=== PATIENT | male | born 1955 | race Caucasian/White ===

== ENCOUNTER 2019-02-20 08:36 | Inpatient (IN) ==
[2019-02-20] MEDS ORDERED: Isovue-370 500 ML BOTTLE IVP ONE ×2 (08:45→08:47)
[2019-02-20 09:01] LABS: Hematocrit 41.8 % (37.5-50.1); Hemoglobin 13.8 g/dL (12.9-16.9); Mean Corpuscular Hemoglobin 28.6 pg (28.0-33.3); Mean Corpuscular Volume 86.7 fL (83.0-100.0); Mean Platelet Volume 11.2 fL (9.4-12.4); Platelet Count 265 K/mcL (140-400); Red Blood Count 4.82 M/mcL (4.19-5.50); Red Cell Distribution Width 13.4 % (11.5-14.5); White Blood Count 10.1 K/mcL (4.3-11.1)
[2019-02-20 09:08] LABS: INR 1.1
[2019-02-20 09:10] LABS: Activated Partial Thrombo Time 31.9 Seconds (26.0-36.0)
--- NOTE | 2019-02-20 09:16 | Emergency Department Note ---
Disposition Clinical Impression: Left-sided weakness, Facial droop, Becker's palsy Disposition: Admitted As Inpatient Condition: Fair Forms: ED Satisfaction Letter Time of Disposition: 10:02 Neuro HPI - General Chief Complaint: ED Neuro Symptoms/Deficit Stated Complaint: Neuro symptoms LKW 9PM last night Time Seen by Provider: 02/20/19 08:38 Source: patient, family Limitations: no limitations Nursing Notes Reviewed: Yes Vital Signs Reviewed: Yes - History of Present Illness HPI Narrative: 63-year-old male presents to the emergency department with left-sided weakness and numbness as well as left facial droop. 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 Said this does feel is Becker's palsy except now he is having left arm and leg weakness he said which is new. Last known well was 9 PM last night when he went to bed. He said he woke up and noticed symptoms at 3 AM but just put him off. Said he is able to walk so his strength is a little bit decreased. Has no chest pain no shortness of breath and no fevers no chills. There is no recent trauma or falls. He is not on any blood thinners. Patient otherwise has no other complaints at this time. - Related Data Home Medications: Home Medications Medication Instructions Recorded Confirmed Amaryl 02/13/15 02/13/15 Hyzaar 50/12.5 02/13/15 02/13/15 Metoprolol Succinate/Hctz 02/13/15 02/13/15 Simvastatin 02/13/15 02/13/15 Allergies/Adverse Reactions: Allergies Allergy/AdvReac Type Severity Reaction Status Date / Time Amoxicillin Allergy Rash Verified 02/20/19 09:03 peanut Allergy Anaphylaxis Verified 02/20/19 09:03 Penicillins [PCN] Allergy Rash Verified 06/24/18 18:20 All systems ED: reviewed and negative except as stated. Review of Systems: As Per HPI Past Medical History - Past Medical History Attestation: Yes The following information was validated with the patient. Source: patient Medical history: Reports: diabetes, hypertension, other Surgical history: Reports: appendectomy Psychiatric history: Reports: no psych history - Social History Smoking Status: Never smoker Smokeless Tobacco Status: No Alcohol use: Reports: none Drug use: Reports: none Physical Exam - General Limitations: no limitations General appearance: alert, in no apparent distress - Head Head exam: atraumatic, normocephalic, normal inspection - Eye Eye exam: Present: normal appearance, PERRL, EOMI - ENT ENT exam: normal exam, normal oropharynx, mucous membranes moist - Neck Neck exam: Present: normal inspection, full ROM, trachea midline - Chest Chest inspection: Present: normal inspection, symmetric chest wall rise - Respiratory Respiratory exam: Present: normal lung sounds bilaterally - Cardiovascular Cardiovascular exam: Present: regular rate, normal rhythm, normal heart sounds - Abdominal Exam Abdominal exam: Present: soft, Non-Tender. Absent: tenderness, distention, guarding, rebound, rigidity - Extremities Exam Extremities exam: Present: normal inspection, full ROM. Absent: tenderness, pedal edema - Back Exam Back exam: Present: normal inspection, full ROM. Absent: tenderness - Neurological Exam Neurological exam: Present: alert, oriented X3 - Expanded Neurological Exam Speech: Present: fluid speech Cranial nerves: EOM function (II, III, IV, ): Normal, facial sensation (V): Normal, facial palsy (VII): Abnormal Left, spinal accessory function (XI): Normal, tongue deviation (XII): Normal Cerebellar function: finger to nose: Normal, heel to hay: Normal Cerebellar function: normal gait Motor strength - LUE: 4/5 Motor strength - RUE: 4/5 Motor strength - LLE: 4/5 Motor strength - RLE: 4/5 Upper motor neuron exam: wili neglect: Absent bilaterally, pronator drift: Absent bilaterally Sensory exam upper extremity: light touch: Normal Sensory exam lower extremity: light touch: Normal Coma Scale Eye Opening: Spontaneous Coma Scale Motor Response: Obeys Commands Coma Scale Verbal Response: Oriented Coma Scale Total: 15 - Skin Skin exam: Present: warm, dry, intact, normal color Course - Consultations Consultation #1: Spoke with Dr. Burnham at [facility] neurology as this was called the stroke alert. She agreed with our plan to this easily could be Becker's palsy the recommended admission to the hospital for stroke workup including an MRI. She said this time patient is not a TPA candidate unless anything comes abnormal on the CT Olena Peter the head and neck is not a thrombectomy patient. Vital Signs Temperature 98.7 F 02/20/19 08:44 Pulse Rate 75 02/20/19 08:44 Respiratory Rate 20 02/20/19 08:44 Blood Pressure 170/72 02/20/19 08:44 O2 Sat by Pulse Oximetry 97 02/20/19 08:44 Temperature 98.7 F 02/20/19 08:44 Pulse Rate 72 02/20/19 09:22 Respiratory Rate 22 02/20/19 09:22 Blood Pressure 127/70 02/20/19 09:22 O2 Sat by Pulse Oximetry 95 02/20/19 09:22 Oxygen Delivery Oxygen Delivery Room Air Neuro Symptoms/Deficit - MDM Narrative Medical decision making narrative: CTs came back with no acute changes. The neurologist recommended admission for possible MRI and stroke workup her labs BACK no acute findings. This easily could be Becker's palsy but due to the new symptoms of left arm and left leg weakness feel admission is needed at this time. Patient is not a TPA candidate he is not thrombectomy candidate either. We will admit the patient to the hospital for further evaluation. Spoke with Dr. frye who agreed to admit the patient to their service. Patient is admitted in stable condition. Head CT 02/20/19 08:59 IMPRESSION: 1. No evidence of acute intracranial abnormality. 2. Abnormal lucencies surrounding the roots of several teeth. Finding nonspecific however likely on the basis of underlying periodontal disease as described above. Critical results were called by Dr. Corby Andersen MD to Oscar Camara DO on 02/20/2019 at 09:06. D/ / 02/20/2019 09:51:51 Corby Andersen MD / aurea Interpreting Provider: Corby Andersen MD Head CTA 02/20/19 09:25 IMPRESSION: Unremarkable CTA of the head and neck. D/ 02/20/2019 09:37:30 Elsie Pond MD / miles perez Interpreting Provider: Elsie Pond MD Neck CTA 02/20/19 09:25 IMPRESSION: Unremarkable CTA of the head and neck. D/ / 02/20/2019 09:37:30 Elsie Pond MD / aurea Interpreting Provider: Elsie Pond MD - Medical Records Medical records reviewed: Yes I reviewed the patient's medical records. - Lab Data Lab results reviewed: Yes I reviewed the patient's lab results. Result diagrams: 02/20/19 08:40 02/20/19 08:40 Lab Results 02/20/19 02/20/19 02/20/19 Range/Units 08:40 08:40 08:40 WBC 10.1 (4.3-11.1) K/mcL RBC 4.82 (4.19-5.50) M/mcL Hgb 13.8 (12.9-16.9) g/dL Hct 41.8 (37.5-50.1) % MCV 86.7 (83.0-100.0) fL MCH 28.6 (28.0-33.3) pg MCHC 33.0 (31.6-35.5) g/dL RDW 13.4 (11.5-14.5) % Plt Count 265 (140-400) K/mcL MPV 11.2 (9.4-12.4) fL PT 12.0 (9.4-12.1) Seconds INR 1.1 APTT 31.9 (26.0-36.0) Seconds Sodium 139 (136-145) mEq/L Potassium 3.6 (3.5-5.1) mEq/L Chloride 100 (98-107) mEq/L Carbon Dioxide 29 (23-29) mEq/L BUN 21 (8-23) mg/dL Creatinine 1.62 H (0.70-1.30) mg/dL Est GFR ( Amer) 53 L (> 60) Est GFR (Non-Af Amer) 43 L (> 60) BUN/Creatinine Ratio 13 (6-26) Glucose 235 H (70-105) mg/dL Calculated Osmolality 299 (280-300) Calcium 9.6 (8.6-10.3) mg/dL Troponin I < 0.03 (< 0.04) ng/mL - Radiology Data Radiology results reviewed: Yes I reviewed the patient's radiology results. - EKG Data EKG attestation: Yes I reviewed and interpreted this EKG. EKG results narrative: EKG done at 1908 review myself and the attending shows sinus rhythm at a rate of 73, LA interval 170, QRS 104, QTc 436. Is no acute ST changes no acute T-wave changes no other signs of ischemia. No signs of hypertrophy, heart strain, heart block. No WPW/brugada/HOCM. No changes based on old EKG done 03/03/15 NIH Stroke Scale - Level of Consciousness LOC: Alert - LOC Questions LOC Questions: Answers both correctly - LOC Commands LOC Commands: Performs both correctly - Best Gaze Best Gaze: Normal - Visual Visual: No visual loss - Facial Palsy Facial Palsy: Minor asymmetry on smiling, flattened nasolabial fold - Motor Arms Motor Arm-Left: No drift for 10 seconds Motor Arm-Right: No drift for 10 seconds - Motor Legs Motor Leg-Left: Drift, does NOT hit bed Motor Leg-Right: No drift for 5 seconds - Limb Ataxia Limb Ataxia: Normal, No Ataxia - Sensory Sensory: Normal - Best Language Best Language: No aphasia - Dysarthria Dysarthria: Normal - Extinction and Inattention Extinction and Inattention: Normal - NIHSS Total Score NIHSS Total Score: 2 TPA Checklist - LKW: 3-4.5 hrs Add. Warnings/Precautions Patient/family understanding: The patient/family members have been counseled and understood the risk, benefit, and alternatives of treatment.
[2019-02-20 09:21] LABS: BUN/Creatinine Ratio 13 (6-26); Blood Urea Nitrogen 21 mg/dL (8-23); Calcium 9.6 mg/dL (8.6-10.3); Carbon Dioxide 29 mEq/L (23-29); Chloride 100 mEq/L (98-107); Glucose 235 mg/dL (70-105); Osmolality,Calculated 299 (280-300); Potassium 3.6 mEq/L (3.5-5.1); Sodium 139 mEq/L (136-145); Troponin I < 0.03 ng/mL (< 0.04); eGFR For African Americans 53 (> 60); eGFR For Non-African Americans 43 (> 60)
--- NOTE | 2019-02-20 10:19 | Emergency Department Note ---
Disposition Clinical Impression: Left-sided weakness, Facial droop, Becker's palsy Disposition: Admitted As Inpatient Condition: Fair Forms: ED Satisfaction Letter Time of Disposition: 10:19 General Adult HPI - General Chief complaint: ED Neuro Symptoms/Deficit Stated complaint: Neuro symptoms LKW 9PM last night Time Seen by Provider: 02/20/19 08:38 Source: patient, family Limitations: no limitations - History of Present Illness Pain Scale: 0 - Related Data Home Medications Medication Instructions Recorded Confirmed Amaryl 02/13/15 02/13/15 Hyzaar 50/12.5 02/13/15 02/13/15 Metoprolol Succinate/Hctz 02/13/15 02/13/15 Simvastatin 02/13/15 02/13/15 Allergies Allergy/AdvReac Type Severity Reaction Status Date / Time Amoxicillin Allergy Rash Verified 02/20/19 09:03 peanut Allergy Anaphylaxis Verified 02/20/19 09:03 Penicillins [PCN] Allergy Rash Verified 06/24/18 18:20 Past Medical History - Past Medical History Medical history: Reports: diabetes, hypertension, other Surgical history: Reports: appendectomy Psychiatric history: Reports: no psych history - Social History Smoking Status: Never smoker Smokeless Tobacco Status: No Alcohol use: Reports: none Drug use: Reports: none Physical Exam - General Limitations: no limitations General appearance: alert, in no apparent distress Course Vital Signs Temperature 98.7 F 02/20/19 08:44 Pulse Rate 75 02/20/19 08:44 Respiratory Rate 20 02/20/19 08:44 Blood Pressure 170/72 02/20/19 08:44 O2 Sat by Pulse Oximetry 97 02/20/19 08:44 Temperature 98.7 F 02/20/19 08:44 Pulse Rate 72 02/20/19 09:22 Respiratory Rate 22 02/20/19 09:22 Blood Pressure 127/70 02/20/19 09:22 O2 Sat by Pulse Oximetry 95 02/20/19 09:22 Oxygen Delivery Oxygen Delivery Room Air Medical Decision Making - Lab Data Result diagrams: 02/20/19 08:40 02/20/19 08:40 Lab Results 02/20/19 02/20/19 02/20/19 Range/Units 08:40 08:40 08:40 WBC 10.1 (4.3-11.1) K/mcL RBC 4.82 (4.19-5.50) M/mcL Hgb 13.8 (12.9-16.9) g/dL Hct 41.8 (37.5-50.1) % MCV 86.7 (83.0-100.0) fL MCH 28.6 (28.0-33.3) pg MCHC 33.0 (31.6-35.5) g/dL RDW 13.4 (11.5-14.5) % Plt Count 265 (140-400) K/mcL MPV 11.2 (9.4-12.4) fL PT 12.0 (9.4-12.1) Seconds INR 1.1 APTT 31.9 (26.0-36.0) Seconds Sodium 139 (136-145) mEq/L Potassium 3.6 (3.5-5.1) mEq/L Chloride 100 (98-107) mEq/L Carbon Dioxide 29 (23-29) mEq/L BUN 21 (8-23) mg/dL Creatinine 1.62 H (0.70-1.30) mg/dL Est GFR ( Amer) 53 L (> 60) Est GFR (Non-Af Amer) 43 L (> 60) BUN/Creatinine Ratio 13 (6-26) Glucose 235 H (70-105) mg/dL Calculated Osmolality 299 (280-300) Calcium 9.6 (8.6-10.3) mg/dL Troponin I < 0.03 (< 0.04) ng/mL Attestation Statement - Attestation Attestation: I reviewed the residents documentation and agree with the residents assessment and plan of care. I have personally had face to face time with the patient. 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 WE have called stroke alert and Dr. Pal at [facility] states that he is not a tpa candidate at this time, we will admit to medicine for MRI.
[2019-02-20] MEDS ORDERED: Ondansetron 4 MG/2 ML VIAL IVP PRN (10:22)
[2019-02-20] MEDS ORDERED: *HR* Promethazine 25 MG/ML VIAL IVP PRN (10:22)
[2019-02-20] MEDS ORDERED: Naloxone 0.4 MG/ML INJ IVP PRN (10:22)
--- NOTE | 2019-02-20 10:45 | Internal Med History&Physical ---
Date of Encounter: 02/20/19 Time of Encounter: 10:27 Internal Medicine - H&P: HPI Chief complaint: L-sided weakness Admitted From: Home Plans for Post Hospital Care: Home History of present illness: Mr. Fox is a 63 year old male with history of Becker's palsy, CK stage III, NIDDM Type II presents with left-sided weakness that he woke up with this morning. Last known well as 9 PM the night prior to admission. Says that he woke up around 3 AM with weakness on the left side but did not think much of it so went back to sleep. Woke up this morning and symptoms were more concerning to him and his . Along with the left-sided weakness, patient's noted some dysarthria. Patient denies numbness or tingling. Denies visual changes. Has chronic left facial droop that has been present for 30 years since an episode of Becker's palsy in which she was not treated with steroids. On a full dose aspirin. Not on blood thinners. Past Med Surg Social Fam HX - Past Medical History Medical history: diabetes, hypertension, other Additional medical history: bells palsy Psychiatric history: no psych history - Past Surgical History Surgical History: appendectomy - Social History Smoking Status: Never smoker Smokeless Tobacco Status: No Alcohol use: none Drug use: none Internal Medicine - H&P: Meds Losartan [Cozaar] 02/20/19 [History] Metoprolol [Lopressor] 02/20/19 [History] metFORMIN [Glucophage] 500 mg PO DAILY 02/20/19 [History] Allergy/AdvReac Type Severity Reaction Status Date / Time Amoxicillin Allergy Rash Verified 02/20/19 09:03 peanut Allergy Anaphylaxis Verified 02/20/19 09:03 Penicillins [PCN] Allergy Rash Verified 06/24/18 18:20 Review of systems: General: Fevers / Chills / Weight loss / Night sweats Eyes: Blurry Vision / Change in Vision HENT: Ear Pain / Ear Drainage / Rhinorrhea / Throat Pain / Lymphadenopathy Cardiovascular: Chest Pain / Palpatations / Orthopnea / ALEJANDRO / Weight gain Lungs: Dyspnea / Wheezing / Cough / Sputum production / Pleurisy Abdomen: Abdomen pain / Abdominal distention / Nausea / Vomiting / Diarrhea / Const : Dysuria / Urinary Frequency / Urinary Urgency / Hematuria Extremities: LE edema / Ext pain / Ext erythema Skin: Rashes / Abrasions / Contusions Psych: Hallucinations / Anxiety / Depression Neuro: Weakness / Numbness / Tingling / Facial Droop / Dysphagia - Constitutional Vitals: Temp Pulse Resp BP Pulse Ox 98.7 F 60 15 136/72 95 02/20/19 08:44 02/20/19 10:15 02/20/19 10:15 02/20/19 10:15 02/20/19 10:15 Exam: General: Ill-appearing and in no acute distress HEENT: No erythema of posterior pharynx. No exudates. Lymphatics: No mandibular or cervical lymphadenopathy Cardiovascular: RRR. No murmurs. No chest wall tenderness. Lungs: Clear to auscelltation bilaterally. Regular chest rise. Abdomen: Non-tender. No rebound or gaurding. Nl bowel sounds. Extremities: No edema. 2+ pulses radial and pedal pulses Skin: No rahses, abrasions, or contusions. Nl cap refill. Psych: Nl attention. A&Ox3 Neuro: Patient has mild dysarthria. Left facial droop noted that includes for head, eyebrows, and mouth ( notes this is at his baseline). 4/5 strength in left upper and lower extremities. Mild dysmetria with [id number] and rapid alternating movements. Sensation to light touch and pinprick intact. Internal Med - H&P Results - Labs CBC & Chem 7: 02/20/19 08:40 02/20/19 08:40 Labs: Short CBC 02/20/19 Range/Units 08:40 WBC 10.1 (4.3-11.1) K/mcL Hgb 13.8 (12.9-16.9) g/dL Hct 41.8 (37.5-50.1) % Plt Count 265 (140-400) K/mcL BMP 02/20/19 08:40 Sodium 139 Potassium 3.6 Chloride 100 Carbon Dioxide 29 BUN 21 Creatinine 1.62 H Glucose 235 H Calcium 9.6 Cardiac Enzymes 02/20/19 Range/Units 08:40 Troponin I < 0.03 (< 0.04) ng/mL - Impressions ITS Impressions Head CT 02/20/19 08:59 IMPRESSION: 1. No evidence of acute intracranial abnormality. 2. Abnormal lucencies surrounding the roots of several teeth. Finding nonspecific however likely on the basis of underlying periodontal disease as described above. Critical results were called by Dr. Corby Andersen MD to Oscar Camara DO on 02/20/2019 at 09:06. D/ / 02/20/2019 09:51:51 Corby Andersen MD / aurea Interpreting Provider: Corby Andersen MD Head CTA 02/20/19 09:25 IMPRESSION: Unremarkable CTA of the head and neck. D/ / 02/20/2019 09:37:30 Elsie Pond MD / aurea Interpreting Provider: Elsie Pond MD Neck CTA 02/20/19 09:25 IMPRESSION: Unremarkable CTA of the head and neck. D/ / 02/20/2019 09:37:30 MD Jackie Estrada Interpreting Provider: Elsie Pond MD - Assessment and Plan (1) Concern about stroke without diagnosis Current Visit: Yes Status: Acute Assessment and plan: Patient with history of Becker's palsy with residual left facial droop and history of multiple stroke risk factors including hypertension and diabetes presents with left-sided weakness and dysarthria in the setting of stable vitals, left- sided weakness and dysarthria on physical exam along with chronic left facial droop, and initial CT imaging of the head negative for acute process. -Case very concerning for acute stroke. History of Becker's palsy but would not explain left upper and lower extremity weakness. -Outside of TPA window on admission -Case was discussed with [facility] neurology who recommended patient stay at [place] for neurology workup -On full dose aspirin outpatient. Discussed case with [place] neurology. Recommend waiting for MRI completion before considering alternative therapies PLAN - S/p 325mg ASA on route - MRI brain wo - Neurology consult - Stroke protocol - Echocardiogram - Telemetry - Permissive HTN - PT/OT - Lipid panel - hx of statin intolerance due to nausea - will start and see if symptoms return - HgA1c (2) Left-sided weakness Current Visit: Yes Status: Acute Assessment and plan: See above (3) Hx of Becker's palsy Current Visit: Yes Status: Acute Assessment and plan: History of Becker's palsy with residual left-sided facial droop. Apparently was n ot treated with steroids when he had this 30 years ago. (4) Diabetes Current Visit: Yes Status: Acute Assessment and plan: Controlled with oral medications outpatient. - LDSS - HgA1c Qualifiers: Diabetes mellitus type: type 2 Diabetes mellitus retirement insulin use: without tank terminal gauger use Diabetes mellitus complication status: with kidney complications Diabetes mellitus complication detail: with chronic kidney disease Chronic kidney disease stage: stage 3 (moderate) Qualified Code(s): E11.22 - Type 2 diabetes mellitus with diabetic chronic kidney disease; N18.3 - Chronic kidney disease, stage 3 (moderate) (5) Hypertension Current Visit: Yes Status: Acute Assessment and plan: Hold antihypertensives in setting of possible stroke for permissive hypertension Qualifiers: Hypertension type: essential hypertension Qualified Code(s): I10 - Essential (primary) hypertension (6) CKD (chronic kidney disease) stage 3, GFR 30-59 ml/min Current Visit: Yes Status: Acute Assessment and plan: A combination of agents diabetes. Currently at baseline. - We will avoid nephrotoxins
[2019-02-20] MEDS ORDERED: Dextrose Gel 15 GM/37.5 ML TUBE PO PRN ×2 (11:00→11:19)
[2019-02-20] MEDS ORDERED: D5% in Water 1,000 ML IVC PRN (11:19)
[2019-02-20] MEDS ORDERED: *HR* Dextrose 50 % in Water (Syg) 50 ML SYRINGE IVP PRN (11:19)
[2019-02-20] MEDS: Insulin LISPRO 300 UNITS/3 ML VIAL SQ SCH ×3 (12:29→21:13)
--- NOTE | 2019-02-20 15:42 | Neurology - Consult Note ---
Date of Encounter: 02/20/19 Time of Encounter: 15:41 History of Present Illness Chief complaint: CVA Past Med Surg Social Fam HX - Past Medical History Medical history: diabetes, hyperlipidemia, hypertension, other Additional medical history: bells palsy Psychiatric history: no psych history - Past Surgical History Surgical History: appendectomy - Social History Smoking Status: Never smoker Smokeless Tobacco Status: No Alcohol use: none Drug use: none Medications and Allergies Aspirin [Ecotrin] 325 mg PO 2-3XD 02/20/19 [History] Glimepiride [Amaryl] 2 mg PO QAM 02/20/19 [History] Losartan/Hydrochlorothiazide [Losartan-Hctz 100-25 mg Tab] 1 tab PO DAILY 02/20/19 [History] Metformin HCl [Glucophage] 500 mg PO DAILY 02/20/19 [History] Metoprolol Succinate [Toprol Xl] 25 mg PO DAILY 02/20/19 [History] Tramadol HCl [Ultram] 50 mg PO PRN PRN 02/20/19 [History] Allergy/AdvReac Type Severity Reaction Status Date / Time Amoxicillin Allergy Rash Verified 02/20/19 14:07 peanut Allergy Anaphylaxis Verified 02/20/19 14:07 Penicillins [PCN] Allergy Rash Verified 02/20/19 14:07 All Systems: The remainder of the systems were reviewed and are negative Physical Examination - Vital Signs Vital Signs: Initial Vital Signs Temp Pulse Resp BP Pulse Ox 98.7 F 75 20 170/72 97 02/20/19 08:44 02/20/19 08:44 02/20/19 08:44 02/20/19 08:44 02/20/19 08:44 Results - Laboratory Findings CBC and BMP: 02/20/19 08:40 02/20/19 08:40 Abnormal lab findings: Abnormal lab results Creatinine 1.62 mg/dL (0.70-1.30) H 02/20/19 08:40 Est GFR ( Amer) 53 (> 60) L 02/20/19 08:40 Est GFR (Non-Af Amer) 43 (> 60) L 02/20/19 08:40 Glucose 235 mg/dL (70-105) H 02/20/19 08:40 Consult Discharge Plan - Plan Referrals: Jorge Dominguez DO [Primary Care Provider] -
--- NOTE | 2019-02-20 16:04 | Neurology - Consult Note ---
Date of Encounter: 02/20/19 Time of Encounter: 16:01 Assessment and Plan (1) CVA (cerebral vascular accident) Current Visit: Yes Status: Acute This is a 63-year-old man with multiple risk factors for CVA who developed acute left pontine infarct causing significant dysarthria and left hemiparesis. This is likely secondary to small vessel etiology. This happened while the patient is taking aspirin 81 mg daily therefore I would suggest to switch antiepileptic therapy from aspirin to Plavix 75 mg daily. Agree with the statin therapy. CT angiogram of neck and head reviewed and showed no significant flow limiting arterial stenosis in the brain and cervical vasculature. Would await echocardiogram report here Patient already evaluated by the skull therapist. Patient also reports loud snoring and episodes of witnessed gasping for air during sleep therefore the patient is advised to follow-up with me in 2-3 weeks after discharge to evaluate for possible untreated obstructive sleep apnea. Qualifiers: CVA mechanism: unspecified Qualified Code(s): I63.9 - Cerebral infarction, unspecified History of Present Illness Chief complaint: Dysarthria and left-sided weakness HPI: Mr. Fox is a 63 year old male with past medical history significant for hypertension, diabetes, chronic kidney disease, obesity who is consulted regarding new onset of left-sided weakness and dysarthria. Patient is interviewed in the presence of his . Apparently, the patient woke up this morning feeling left-sided is weak. His also noticed the patient has slurred speech. This probably occurred prior to 3 AM this morning. Patient was considered not to be a candidate for TPA thrombo-lysis when he was evaluated in the emergency room. Initial CT of the head showed no acute intracranial abnormality. At the time of this interview, MRI of the brain was completed and demonstrated pontine infarct on the left side. Patient has left-sided weakness and slurred speech. He has history of Becker's palsy involving the left face and still has a facial droop that is recognizable. Left-sided weakness has improved slightly since admission. Patient is currently taking aspirin 81 mg for as specified condition since the last few years. Past Med Surg Social Fam HX - Past Medical History Medical history: diabetes, hyperlipidemia, hypertension, other Additional medical history: bells palsy Psychiatric history: no psych history - Past Surgical History Surgical History: appendectomy - Social History Smoking Status: Never smoker Smokeless Tobacco Status: No Alcohol use: none Drug use: none Medications and Allergies Aspirin [Ecotrin] 325 mg PO 2-3XD 02/20/19 [History] Glimepiride [Amaryl] 2 mg PO QAM 02/20/19 [History] Losartan/Hydrochlorothiazide [Losartan-Hctz 100-25 mg Tab] 1 tab PO DAILY 02/20/19 [History] Metformin HCl [Glucophage] 500 mg PO DAILY 02/20/19 [History] Metoprolol Succinate [Toprol Xl] 25 mg PO DAILY 02/20/19 [History] Tramadol HCl [Ultram] 50 mg PO PRN PRN 02/20/19 [History] Allergy/AdvReac Type Severity Reaction Status Date / Time Amoxicillin Allergy Rash Verified 02/20/19 14:07 peanut Allergy Anaphylaxis Verified 02/20/19 14:07 Penicillins [PCN] Allergy Rash Verified 02/20/19 14:07 All Systems: The remainder of the systems were reviewed and are negative - Constitutional Constitutional ROS IM: anorexia (no), chills (no), daytime sleepiness (no) - Nose, Mouth, Throat Nose, mouth and throat: abnormal hearing (no) - Respiratory Respiratory IM: cough (no), dyspnea (no), hemoptysis (no), dyspnea on exertion (no) - Gastrointestinal Gastrointestinal: abdominal pain (no) - Musculoskeletal Musculoskeletal ROS IM: abnormal gait (yes) - Neurological Neurological ROS: abnormal gait (yes), abnormal hearing (no), abnormal movements (no), abnormal speech (yes), convulsions (no), dizziness (no), focal weakness (yes) - Psychiatric Psychiatric general PM: abnormal sleep pattern (no), anhedonia (no) - Endocrine Endocrine IM: change in body appearance (no) Physical Examination - Vital Signs Vital Signs: Initial Vital Signs Temp Pulse Resp BP Pulse Ox 98.7 F 75 20 170/72 97 02/20/19 08:44 02/20/19 08:44 02/20/19 08:44 02/20/19 08:44 02/20/19 08:44 - Constitutional General appearance: comfortable - Neurologic Sensorimotor examination: intact Motor examination - right side: 5/5: deltoids, biceps, triceps, wrist flexion, wrist extension, physical therapist assistant, hip flexors, tibialis Anterior, quadriceps, toe extension (EHL), plantarflexion Motor examination - left side: 4/5: deltoids, biceps, triceps, wrist flexion, wrist extension, hip flexors, physical therapist assistant, quadriceps, tibialis Anterior, toe extension (EHL), plantarflexion Detailed sensory examination: intact Posture: other (None) Reflexes: Biceps: 1+, Triceps: 1+, Brachioradialis: 1+, Patella: 1+, Achilles: 1+ Mental Status Examination: awake, alert, oriented to person, oriented to place, oriented to time, follows commands appropriately, answers questions appropriately, no agnosia, no aphasia, no aproxia Cranial nerve examination: PERRL, EOMI, visual altman intact, corneal reflexes brisk symmetrically, sensory to face intact, mastication intact, no facial asymmetry is present (left facila droop noted, from previous Becker's palsy), no dysarthria, hearing is intact symmetrically, soft palate elevates bilaterally upon phonation, gag reflex intact, flexes SCM and trapezius muscles symmetrically with full power, tongue protrudes midline, no atrophy or facial fasiculations present Results - Laboratory Findings CBC and BMP: 02/20/19 08:40 02/20/19 08:40 Abnormal lab findings: Abnormal lab results Creatinine 1.62 mg/dL (0.70-1.30) H 02/20/19 08:40 Est GFR ( Amer) 53 (> 60) L 02/20/19 08:40 Est GFR (Non-Af Amer) 43 (> 60) L 02/20/19 08:40 Glucose 235 mg/dL (70-105) H 02/20/19 08:40 - Diagnostic Findings Additional findings: CTA OF THE HEAD WITHOUT AND WITH CONTRAST; CTA OF THE NECK 02/20/2019 9:20 am: TECHNIQUE: CTA of the head/brain was performed without and with the administration of intravenous contrast. Multiplanar reformatted images are provided for review. MIP images are provided for review. Dose modulation, iterative reconstruction, and/or weight based adjustment of the mA/kV was utilized to reduce the radiation dose to as low as reasonably achievable.; CTA of the neck was performed with the administration of intravenous contrast. Multiplanar reformatted images are provided for review. MIP images are provided for review. Stenosis of the internal carotid arteries measured using NASCET criteria. Dose modulation, iterative reconstruction, and/or weight based adjustment of the mA/kV was utilized to reduce the radiation dose to as low as reasonably achievable. COMPARISON: None. HISTORY: ORDERING SYSTEM PROVIDED HISTORY: LT SIDED NUMBNESS AND WEAKNESS 75 ml of ISOVUE Acute symptoms. Initial encounter. FINDINGS: CTA NECK: AORTIC ARCH/ARCH VESSELS: There is a normal branch pattern of the aortic arch. No significant stenosis is seen of the innominate artery or subclavian arteries. CAROTID ARTERIES: The common carotid arteries are without flow limiting stenosis. The internal carotid arteries are without flow limiting stenosis by NASCET criteria. No dissection or arterial injury is seen. VERTEBRAL ARTERIES: The vertebral arteries both arise from the subclavian arteries and are without flow limiting stenosis or dissection. SOFT TISSUES: The lung apices are clear. No cervical or superior mediastinal lymphadenopathy. The visualized portion of the larynx and pharynx appear unremarkable. The parotid, submandibular and thyroid glands demonstrate no acute abnormality. BONES: Multilevel degenerative disc disease throughout the cervical spine and upper thoracic spine. Changes of DISH. 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 CTA HEAD: ANTERIOR CIRCULATION: The internal carotid arteries are normal in course and caliber without focal stenosis. The anterior cerebral and middle cerebral arteries demonstrate no focal stenosis. POSTERIOR CIRCULATION: The posterior cerebral arteries demonstrate no focal stenosis. The vertebral and basilar arteries appear unremarkable. Prominent right posterior communicating artery is present. type left posterior cerebral artery. BRAIN: No mass effect or midline shift. No abnormal extra-axial fluid collection. The benítez-white differentiation appears grossly maintained. CT/CT angio head IMPRESSION: Unremarkable CTA of the head and neck. D/ / 02/20/2019 09:37:30 Elsie Pond MD / aurea Interpreting Provider: Elsie Pond MD OF THE BRAIN WITHOUT CONTRAST 02/20/2019 11:43 am TECHNIQUE: Multiplanar multisequence MRI of the brain was performed without the administration of intravenous contrast. COMPARISON: Head CT 02/20/2019 HISTORY: ORDERING SYSTEM PROVIDED HISTORY: L sided weakness and concern for CVA Acute symptoms. Initial encounter. FINDINGS: INTRACRANIAL STRUCTURES/VENTRICLES: Diffusion restriction in the right mirella measures 11.5 x 10 mm. Subtle increased T2/FLAIR hyperintense signal. No mass effect or midline shift. No acute intracranial hemorrhage. The ventricles and sulci are normal in size and configuration. Foci of periventricular, subcortical, and pontine white matter T2/FLAIR hyperintense signal. The sellar/suprasellar regions appear unremarkable. The normal signal voids within the major intracranial vessels appear maintained. ORBITS: The visualized portion of the orbits demonstrate no acute abnormality. SINUSES: Mucosal thickening of the paranasal sinuses. Tympanomastoid cavities are clear. BONES/SOFT TISSUES: The bone marrow signal intensity appears normal. The soft tissues demonstrate no acute abnormality. MR/MR head/brain wo con IMPRESSION: 1. Acute infarction in the right mirella measures 11.5 x 10 mm. No associated hemorrhage. 2. Sequela of mild chronic microvascular ischemic changes. The findings were sent to the Radiology Results Communication [facility] at 12:34 pm on 02/20/2019to be communicated to a licensed caregiver. D/ / 02/20/2019 12:37:55 Elsie Pond MD / alessandro Interpreting Provider: Elsie Pond MD Consult Discharge Plan - Plan Referrals: Jorge Dominguez DO [Primary Care Provider] -
[2019-02-21 04:53] LABS: Amphetamine Screen,Urine Negative ng/mL (Cutoff=1000); Barbiturate Screen,Urine Negative ng/mL (Cutoff=200); Benzodiazepines Screen,Urine Negative ng/mL (Cutoff=200); Cannabinoid Screen,Urine Negative ng/mL (Cutoff = 50); Cocaine Screen,Urine Negative ng/mL (Cutoff= 300); Opiate Screen,Urine Negative ng/mL (Cutoff=300); Phencyclidine Screen,Urine Negative ng/mL (Cutoff=25)
[2019-02-21 05:43] LABS: Basophils # 0.1 K/mcL (0.0-0.2); Basophils % 0.5 %; Eosinophils # 0.2 K/mcL (0.0-0.6); Eosinophils % 1.8 %; Hematocrit 40.3 % (37.5-50.1); Hemoglobin 13.5 g/dL (12.9-16.9); Immature Granulocytes % 0.3 % (0-4); Lymphocytes # 2.2 K/mcL (0.6-4.6); Lymphocytes % 21.7 %; Mean Corpuscular HGB Conc 33.5 g/dL (31.6-35.5); Mean Corpuscular Hemoglobin 29.3 pg (28.0-33.3); Mean Corpuscular Volume 87.4 fL (83.0-100.0); Mean Platelet Volume 11.2 fL (9.4-12.4); Monocytes # 0.6 K/mcL (0.0-1.3); Monocytes % 6.2 %; Platelet Count 240 K/mcL (140-400); Red Blood Count 4.61 M/mcL (4.19-5.50); Red Cell Distribution Width 13.2 % (11.5-14.5); Segmented Neutrophils % 69.5 %; White Blood Count 10.1 K/mcL (4.3-11.1)
[2019-02-21 06:04] LABS: BUN/Creatinine Ratio 14 (6-26); Blood Urea Nitrogen 20 mg/dL (8-23); Calcium 9.5 mg/dL (8.6-10.3); Carbon Dioxide 27 mEq/L (23-29); Chloride 104 mEq/L (98-107); Chol/HDL Ratio 8.2 (0-4.9); Glucose 166 mg/dL (70-105); Osmolality,Calculated 298 (280-300); Potassium 3.7 mEq/L (3.5-5.1); Sodium 141 mEq/L (136-145); eGFR For African Americans > 60 (> 60); eGFR For Non-African Americans 50 (> 60)
[2019-02-21 06:41] LABS: Estimated Average Glucose 134 mg/dl
[2019-02-21] MEDS: Insulin LISPRO 300 UNITS/3 ML VIAL SQ SCH ×4 (08:05→20:38)
[2019-02-21] MEDS ORDERED: Aspirin Enteric Coated 81 MG Tablet PO SCH (09:00)
[2019-02-21] MEDS: Perflutren Lipid Microsphere 1.3 ML in 0.9 % Sodium Chloride 8.7 ML IVP ONE ×2 (09:50→10:10)
--- NOTE | 2019-02-21 10:16 | Internal Med Progress Note ---
Hospitalist Progress Note - Encounter Date of Encounter: 02/21/19 Time of Encounter: 08:45 - Subjective Interval History: Mr Fox was quite tearful during the encounter today, his Anna can be reached at [phone]. She stated that patient dreaded being retired from his place of work because he jokingly said most of the folks that retired from that is one place are within one year of being retired. Of note patient has been diagnosed with acute stroke with left-sided deficit. Patient admits to being depressed and agrees. She denies any guns in the home and stated that they planned to visit [place] next December 2019. Discharge planning was discussed and it was deemed the patient might benefit from aggressive physical t herapy. She stated a family friend of theirs is the director of the physical therapy unit at [facility] as such patient and his are agreeable to discharge to inpatient rehabilitation at [facility]. He denies dysphagia GEN: Denies fever, chills or malaise HEENT: Denies headache blurriness, or dysphagia RESP: Denies SOB or cough CV: Denies chest pain or palpitations GI: Denies Nausea, vomiting, diarrhea or constipation Reviewed current in hospital medications with modifications see orders Reviewed Routine labs - Exam Vitals: Temp Pulse Resp BP Pulse Ox 98.0 F 69 16 143/85 94 02/21/19 07:23 02/21/19 07:23 02/21/19 07:23 02/21/19 07:23 02/21/19 07:23 Exam: GEN: Mildly distressed and tearful, conversant at his bedside SKIN: [place] warm acyanotic not jaundice HEART: RRR, no murmurs LUNGS: CTA no wheeze or crackles, overall non labored ABDOMEN; Soft, non tender or distended, BS x 4 normactive EXT: No LE edema, Pedal pulses 1+, radial pulses 2+ PSYCH: Mood and affect is appropriate Neuro: Left Facial droop noted, muscle strength testing reveals left sided weakness 2 out of 5 bilateral upper and lower limb extremity - Assessment and Plan (1) Right pontine cerebrovascular accident Current Visit: Yes Status: Acute Assessment and Plan: MR/MR head/brain wo con IMPRESSION: 1. Acute infarction in the right mirella measures 11.5 x 10 mm. No associated hemorrhage. 2. Sequela of mild chronic microvascular ischemic changes. 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 She denies any guns in the home, patient and is agreeable to trial of sertraline. 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 Apparently was not treated with steroids when he had this 30 years ago. 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 62 to 1.44. Monitor BMP DVT Prophylaxis: scd - Time Spent with Patient Total time spent is greater than 50% in coordination of care (as documented) at patient's floor/unit and/or counseling patient: Internal Medicine: Result - Labs CBC & Chem 7: 02/21/19 05:17 02/21/19 05:17 Labs: Short CBC 02/21/19 Range/Units 05:17 WBC 10.1 (4.3-11.1) K/mcL Hgb 13.5 (12.9-16.9) g/dL Hct 40.3 (37.5-50.1) % Plt Count 240 (140-400) K/mcL Neutrophils # 7.0 (1.6-8.9) K/mcL BMP 02/21/19 05:17 Sodium 141 Potassium 3.7 Chloride 104 Carbon Dioxide 27 BUN 20 Creatinine 1.44 H Glucose 166 H Calcium 9.5 Cardiac Enzymes 02/20/19 Range/Units 12:53 Troponin I < 0.03 (< 0.04) ng/mL - ABG Interpretation ABG results: PT/INR, D-dimer PT 12.0 Seconds (9.4-12.1) 02/20/19 08:40 - Impressions Impressions Head CTA 02/20/19 09:25 IMPRESSION: Unremarkable CTA of the head and neck. D/ / 02/20/2019 09:37:30 Elsie Pond MD / aurea Interpreting Provider: Elsie Pond MD Neck CTA 02/20/19 09:25 IMPRESSION: Unremarkable CTA of the head and neck. D/ / 02/20/2019 09:37:30 Elsie Pond MD / aurea Interpreting Provider: Elsie Pond MD Brain MRI 02/20/19 11:57 IMPRESSION: 1. Acute infarction in the right mirella measures 11.5 x 10 mm. No associated hemorrhage. 2. Sequela of mild chronic microvascular ischemic changes. The findings were sent to the Radiology Results Communication Center at 12:34 pm on 02/20/2019to be communicated to a licensed caregiver. D/ / 02/20/2019 12:37:55 Elsie Pond MD / alessandro Interpreting Provider: Elsie Pond MD Consult Discharge Plan - Plan Referrals: Jorge Dominguez DO [Primary Care Provider] - (4) Diabetes Qualifiers: Diabetes mellitus type: type 2 Diabetes mellitus custodial insulin use: without longwall shearer operator use Diabetes mellitus complication status: with kidney complications Diabetes mellitus complication detail: with chronic kidney disease Chronic kidney disease stage: stage 3 (moderate) Qualified Code(s): E11.22 - Type 2 diabetes mellitus with diabetic chronic kidney disease; N18.3 - Chronic kidney disease, stage 3 (moderate) (5) Hypertension Qualifiers: Hypertension type: essential hypertension Qualified Code(s): I10 - Essential (primary) hypertension
[2019-02-21] MEDS: 0.9 % Sodium Chloride 1,000 ML IVC SCH (11:50)
--- NOTE | 2019-02-21 12:28 | Neurology Progress Note ---
Date of Encounter: 02/21/19 Time of Encounter: 12:26 Assessment and Plan (1) CVA (cerebral vascular accident) Current Visit: Yes Status: Acute This is a 63-year-old man with multiple risk factors for CVA who developed acute left pontine infarct causing significant dysarthria and left hemiparesis. This is likely secondary to small vessel etiology. Patient is doing better with slight improvement in left sided weakness. CTA of neck and head completed showing no significant pathology. Await Echocardiography. Agree with Plavix 75mg daily. Continue statin therapy. May benefit from PT. Patient may be discharged from neurology perspective at your discretion. Will sign off at this time please call if any questions Qualifiers: CVA mechanism: unspecified Qualified Code(s): I63.9 - Cerebral infarction, unspecified Subjective Principal diagnosis: CVA Interval history: Patient seen and examined at the bedside today. Patient neurological status is stable. He also reports slight improvement in his left-sided weakness. He is able to walk holding on something although walking is slow. Completed CT angiogram of the brain and neck which demonstrated no significant flow limiting arterial stenosis in the brain and cervical vasculature. Echocardiogram is still pending. Patient is on a combination of aspirin and Plavix and statin therapy. Objective - Constitutional Vitals: Temp Pulse Resp BP Pulse Ox 98.1 F 65 16 141/85 95 02/21/19 11:27 02/21/19 11:27 02/21/19 11:27 02/21/19 11:27 02/21/19 11:27 - Neurological Exam Sensorimotor examination: Present: intact Motor examination - left side: 4/5: deltoids, biceps, triceps, wrist flexion, wrist extension, hip flexors, lan support specialist, quadriceps, tibialis Anterior, toe extension (EHL), plantarflexion Sensation intact: Present: intact Posture: Present: other (None) Mental Status Examination: Present: awake, alert, oriented to person, oriented to place, oriented to time, follows commands appropriately, answers questions appropriately, no agnosia, no aphasia, no aproxia Cranial nerve examination: Present: PERRL, EOMI, visual altman intact, corneal reflexes brisk symmetrically, sensory to face intact, mastication intact, no facial asymmetry is present (left facila droop noted, from previous Becker's palsy), no dysarthria, hearing is intact symmetrically, soft palate elevates bilaterally upon phonation, gag reflex intact, flexes SCM and trapezius muscles symmetrically with full power, tongue protrudes midline, no atrophy or facial fasiculations present Results - Laboratory Findings CBC and BMP: 02/21/19 05:17 02/21/19 05:17 Abnormal lab findings: Abnormal lab results Creatinine 1.44 mg/dL (0.70-1.30) H 02/21/19 05:17 Est GFR ( Amer) 53 (> 60) L 02/20/19 08:40 Est GFR (Non-Af Amer) 50 (> 60) L 02/21/19 05:17 Glucose 166 mg/dL (70-105) H 02/21/19 05:17 POC Glucose 144 mg/dL (70-99) H 02/20/19 20:07 Hemoglobin A1c 6.3 % (-5.6) H 02/21/19 05:17 Triglycerides 202 mg/dL (< 150) H 02/21/19 05:17 LDL Cholesterol, Calc 112 mg/dL (0-99) H 02/21/19 05:17 VLDL Cholesterol, Calc 40 mg/dL (< 31) H 02/21/19 05:17 HDL Cholesterol 21 mg/dL (40-59) L 02/21/19 05:17 Cholesterol/HDL Ratio 8.2 (0-4.9) H 02/21/19 05:17 - Diagnostic Findings Additional findings: CTA OF THE HEAD WITHOUT AND WITH CONTRAST; CTA OF THE NECK 02/20/2019 9:20 am: TECHNIQUE: CTA of the head/brain was performed without and with the administration of intravenous contrast. Multiplanar reformatted images are provided for review. MIP images are provided for review. Dose modulation, iterative reconstruction, and/or weight based adjustment of the mA/kV was utilized to reduce the radiation dose to as low as reasonably achievable.; CTA of the neck was performed with the administration of intravenous contrast. Multiplanar reformatted images are provided for review. MIP images are provided for review. Stenosis of the internal carotid arteries measured using NASCET criteria. Dose modulation, iterative reconstruction, and/or weight based adjustment of the mA/kV was utilized to reduce the radiation dose to as low as reasonably achievable. COMPARISON: None. HISTORY: ORDERING SYSTEM PROVIDED HISTORY: LT SIDED NUMBNESS AND WEAKNESS 75 ml of ISOVUE Acute symptoms. Initial encounter. FINDINGS: CTA NECK: AORTIC ARCH/ARCH VESSELS: There is a normal branch pattern of the aortic arch. No significant stenosis is seen of the innominate artery or subclavian arteries. CAROTID ARTERIES: The common carotid arteries are without flow limiting stenosis. The internal carotid arteries are without flow limiting stenosis by NASCET criteria. No dissection or arterial injury is seen. VERTEBRAL ARTERIES: The vertebral arteries both arise from the subclavian arteries and are without flow limiting stenosis or dissection. SOFT TISSUES: The lung apices are clear. No cervical or superior mediastinal lymphadenopathy. The visualized portion of the larynx and pharynx appear unremarkable. The parotid, submandibular and thyroid glands demonstrate no acute abnormality. BONES: Multilevel degenerative disc disease throughout the cervical spine and upper thoracic spine. Changes of DISH. 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 CTA HEAD: ANTERIOR CIRCULATION: The internal carotid arteries are normal in course and caliber without focal stenosis. The anterior cerebral and middle cerebral arteries demonstrate no focal stenosis. POSTERIOR CIRCULATION: The posterior cerebral arteries demonstrate no focal stenosis. The vertebral and basilar arteries appear unremarkable. Prominent right posterior communicating artery is present. type left posterior cerebral artery. BRAIN: No mass effect or midline shift. No abnormal extra-axial fluid collection. The benítez-white differentiation appears grossly maintained. CT/CT angio head IMPRESSION: Unremarkable CTA of the head and neck. D/ / 02/20/2019 09:37:30 Elsie Pond MD / aurea Interpreting Provider: Elsie Pond MD Consult Discharge Plan - Plan Referrals: Jorge Dominguez DO [Primary Care Provider] -
[2019-02-21] MEDS ORDERED: *HR* Heparin 5,000 UNIT/ML VIAL SQ SCH (14:00)
[2019-02-22] MEDS: 0.9 % Sodium Chloride 1,000 ML IVC SCH ×3 (06:22→18:04)
[2019-02-22] MEDS: Insulin LISPRO 300 UNITS/3 ML VIAL SQ SCH ×4 (07:48→21:46)
--- NOTE | 2019-02-22 12:44 | Electrocardiograph Report ---
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
--- NOTE | 2019-02-22 18:29 | Internal Med Progress Note ---
Hospitalist Progress Note - Encounter Date of Encounter: 02/22/19 Time of Encounter: 08:30 - Subjective Interval History: Mr Fox is currently being considered for placement to [facility] for rehabilitation, he continues to participate in physical therapy as well as occupational and speech therapy GEN: Denies fever, chills or malaise HEENT: Denies headache blurriness, or dysphagia RESP: Denies SOB or cough CV: Denies chest pain or palpitations GI: Denies Nausea, vomiting, diarrhea or constipation Reviewed current in hospital medications with modifications see orders Reviewed Routine labs - Exam Vitals: Temp Pulse Resp BP Pulse Ox 98.0 F 68 15 158/84 95 02/22/19 16:50 02/22/19 16:50 02/22/19 16:50 02/22/19 16:50 02/22/19 16:50 Exam: GEN: NAD, A&O x3 conversant at his bedside SKIN: [place] warm acyanotic not jaundice HEART: RRR, no murmurs LUNGS: CTA no wheeze or crackles, overall non labored ABDOMEN; Soft, non tender or distended, BS x 4 normactive EXT: No LE edema, Pedal pulses 1+, radial pulses 2+ PSYCH: Mood and affect is appropriate - Assessment and Plan (1) Right pontine cerebrovascular accident Current Visit: Yes Status: Acute Assessment and Plan: MR/MR head/brain wo con IMPRESSION: 1. Acute infarction in the right mirella measures 11.5 x 10 mm. No associated hemorrhage. 2. Sequela of mild chronic microvascular ischemic changes. CTA head and neck was unremarkable, 2-D echo remarkable with no PFO with agitated saline contrast. 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 She denies any guns in the home, patient and is agreeable to trial of sertraline. 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 Apparently was not treated with steroids when he had this 30 years ago. 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 Continue to hold hypertensive for another 24 hours (6) CKD (chronic kidney disease) stage 3, GFR 30-59 ml/min Current Visit: Yes Status: Acute Assessment and Plan: Serum creatinine baseline ranges from 1.31-1.54 did not back to 2014, improved from 1. 62 to 1.44. Monitor BMP DVT Prophylaxis: scd - Time Spent with Patient Total time spent is greater than 50% in coordination of care (as documented) at patient's floor/unit and/or counseling patient: Internal Medicine: Result - Labs CBC & Chem 7: 02/21/19 05:17 02/21/19 05:17 - ABG Interpretation ABG results: PT/INR, D-dimer PT 12.0 Seconds (9.4-12.1) 02/20/19 08:40 Consult Discharge Plan - Plan Referrals: Jorge Dominguez, [Primary Care Provider] - (4) Diabetes Qualifiers: Diabetes mellitus type: type 2 Diabetes mellitus tail ripper insulin use: without tail ripper use Diabetes mellitus complication status: with kidney complications Diabetes mellitus complication detail: with chronic kidney disease Chronic kidney disease stage: stage 3 (moderate) Qualified Code(s): E11.22 - Type 2 diabetes mellitus with diabetic chronic kidney disease; N18.3 - Chronic kidney disease, stage 3 (moderate) (5) Hypertension Qualifiers: Hypertension type: essential hypertension Qualified Code(s): I10 - Essential (primary) hypertension
[2019-02-23] MEDS: 0.9 % Sodium Chloride 1,000 ML IVC SCH ×2 (03:44→16:33)
[2019-02-23 06:03] LABS: Basophils # 0.1 K/mcL (0.0-0.2); Basophils % 0.5 %; Eosinophils # 0.2 K/mcL (0.0-0.6); Eosinophils % 1.8 %; Immature Granulocytes % 0.2 % (0-4); Lymphocytes # 2.2 K/mcL (0.6-4.6); Lymphocytes % 22.5 %; Mean Corpuscular HGB Conc 33.1 g/dL (31.6-35.5); Mean Corpuscular Volume 87.8 fL (83.0-100.0); Mean Platelet Volume 11.1 fL (9.4-12.4); Monocytes # 0.7 K/mcL (0.0-1.3); Monocytes % 7.1 %; Neutrophils # 6.6 K/mcL (1.6-8.9); Platelet Count 211 K/mcL (140-400); Red Cell Distribution Width 13.1 % (11.5-14.5); Segmented Neutrophils % 67.9 %; White Blood Count 9.8 K/mcL (4.3-11.1)
[2019-02-23 06:20] LABS: Hemoglobin 11.9 g/dL (12.9-16.9)
[2019-02-23 06:22] LABS: BUN/Creatinine Ratio 12 (6-26); Blood Urea Nitrogen 16 mg/dL (8-23); Calcium 8.4 mg/dL (8.6-10.3); Carbon Dioxide 25 mEq/L (23-29); Chloride 108 mEq/L (98-107); Glucose 133 mg/dL (70-105); Osmolality,Calculated 301 (280-300); Potassium 3.6 mEq/L (3.5-5.1); Sodium 144 mEq/L (136-145); eGFR For African Americans > 60 (> 60); eGFR For Non-African Americans 54 (> 60)
[2019-02-23] MEDS: Insulin LISPRO 300 UNITS/3 ML VIAL SQ SCH ×4 (07:35→20:46)
--- NOTE | 2019-02-23 10:05 | Internal Med Progress Note ---
Hospitalist Progress Note - Encounter Date of Encounter: 02/23/19 Time of Encounter: 08:15 - Subjective Interval History: Mr Fox is awaiting precertification placement for rehabilitation status post acute stroke. Patient this morning became quite tearful again. GEN: Denies fever, chills or malaise HEENT: Denies headache blurriness, or dysphagia RESP: Denies SOB or cough CV: Denies chest pain or palpitations GI: Denies Nausea, vomiting, diarrhea or constipation Reviewed current in hospital medications with modifications see orders Reviewed Routine labs - Exam Vitals: Temp Pulse Resp BP Pulse Ox 98.4 F 69 16 146/81 92 02/23/19 07:35 02/23/19 07:35 02/23/19 07:35 02/23/19 07:35 02/23/19 07:35 Exam: GEN: NAD, A&O x3 conversant at his bedside, patient became quite tearful again this morning SKIN: [place] warm acyanotic not jaundice HEART: RRR, no murmurs LUNGS: CTA no wheeze or crackles, overall non labored ABDOMEN; Soft, non tender or distended, BS x 4 normactive EXT: No LE edema, Pedal pulses 1+, radial pulses 2+ PSYCH: Mood depressed and affect flat - Assessment and Plan (1) Right pontine cerebrovascular accident Current Visit: Yes Status: Acute Assessment and Plan: MR/MR head/brain wo con IMPRESSION: 1. Acute infarction in the right mirella measures 11.5 x 10 mm. No associated hemorrhage. 2. Sequela of mild chronic microvascular ischemic changes. CTA head and neck was unremarkable, 2-D echo remarkable with no PFO with ag itated saline contrast. 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 She denies any guns in the home, patient and is agreeable to trial of sertraline. 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 Apparently was n ot treated with steroids when he had this 30 years ago. 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 (4) Diabetes Current Visit: Yes Status: Acute Assessment and Plan: A1c was 6.3 continue insulin bedside Accu-Cheks, POC 134-144 (5) Hypertension Current Visit: Yes Status: Acute Assessment and Plan: Hold antihypertensives in setting of possible stroke for permissive hypertension, systolic blood pressure 146-158 slightly below the goal of 160- 180, patient is now 3 days after his initial stroke diagnoses BP this am 146/81, will resume his metoprolol XL tomorrow but continue to hold his losartan for now which could be added on the upcoming days at a lower dose than his typical home dose (6) CKD (chronic kidney disease) stage 3, GFR 30-59 ml/min Current Visit: Yes Status: Acute Assessment and Plan: Serum creatinine baseline ranges from 1.31-1.54 did not back to 2014, improved from 1. 62 to 1.44 to 1.35. Monitor BMP DVT Prophylaxis: scd, anticipate discharge in the next 24-48 hours - Time Spent with Patient Total time spent is greater than 50% in coordination of care (as documented) at patient's floor/unit and/or counseling patient: Internal Medicine: Result - Labs CBC & Chem 7: 02/23/19 05:31 02/23/19 05:31 Labs: Short CBC 02/23/19 Range/Units 05:31 WBC 9.8 (4.3-11.1) K/mcL Hgb 11.9 L D (12.9-16.9) g/dL Hct 36.0 L (37.5-50.1) % Plt Count 211 (140-400) K/mcL Neutrophils # 6.6 (1.6-8.9) K/mcL BMP 02/23/19 05:31 Sodium 144 Potassium 3.6 Chloride 108 H Carbon Dioxide 25 BUN 16 Creatinine 1.35 H Glucose 133 H Calcium 8.4 L - ABG Interpretation ABG results: PT/INR, D-dimer PT 12.0 Seconds (9.4-12.1) 02/20/19 08:40 - Impressions Impressions Head CT 02/20/19 08:59 IMPRESSION: 1. No evidence of acute intracranial abnormality. 2. Abnormal lucencies surrounding the roots of several teeth. Finding nonspecific however likely on the basis of underlying periodontal disease as described above. Critical results were called by Dr. Corby Andersen MD to [facility] on 02/20/2019 at 09:06. D/ / 02/20/2019 09:51:51 Corby Andersen MD / aurea Interpreting Provider: Corby Andersen MD Consult Discharge Plan - Plan Referrals: Jorge Dominguez DO [Primary Care Provider] - (4) Diabetes Qualifiers: Diabetes mellitus type: type 2 Diabetes mellitus rn long term care insulin use: without rn long term care use Diabetes mellitus complication status: with kidney complications Diabetes mellitus complication detail: with chronic kidney disease Chronic kidney disease stage: stage 3 (moderate) Qualified Code(s): E11.22 - Type 2 diabetes mellitus with diabetic chronic kidney disease; N18.3 - Chronic kidney disease, stage 3 (moderate) (5) Hypertension Qualifiers: Hypertension type: essential hypertension Qualified Code(s): I10 - Essential (primary) hypertension
[2019-02-24] MEDS: 0.9 % Sodium Chloride 1,000 ML IVC SCH ×2 (02:31→09:35)
[2019-02-24 03:09] LABS: Basophils # 0.1 K/mcL (0.0-0.2); Basophils % 0.5 %; Eosinophils # 0.2 K/mcL (0.0-0.6); Hematocrit 36.5 % (37.5-50.1); Hemoglobin 11.9 g/dL (12.9-16.9); Immature Granulocytes % 0.3 % (0-4); Lymphocytes # 2.2 K/mcL (0.6-4.6); Lymphocytes % 20.3 %; Mean Corpuscular HGB Conc 32.6 g/dL (31.6-35.5); Mean Platelet Volume 11.6 fL (9.4-12.4); Monocytes # 0.7 K/mcL (0.0-1.3); Monocytes % 6.7 %; Neutrophils # 7.5 K/mcL (1.6-8.9); Platelet Count 211 K/mcL (140-400); Segmented Neutrophils % 70.2 %; White Blood Count 10.7 K/mcL (4.3-11.1)
[2019-02-24 03:34] LABS: BUN/Creatinine Ratio 10 (6-26); Blood Urea Nitrogen 13 mg/dL (8-23); Calcium 8.2 mg/dL (8.6-10.3); Carbon Dioxide 23 mEq/L (23-29); Chloride 110 mEq/L (98-107); Glucose 119 mg/dL (70-105); Magnesium 1.9 mg/dL (1.6-2.6); Osmolality,Calculated 293 (280-300); Potassium 3.4 mEq/L (3.5-5.1); Sodium 141 mEq/L (136-145); eGFR For African Americans > 60 (> 60); eGFR For Non-African Americans 56 (> 60)
[2019-02-24] MEDS: Insulin LISPRO 300 UNITS/3 ML VIAL SQ SCH ×2 (07:38→12:10)
[2019-02-24] MEDS ORDERED: Metoprolol XL (24 HR) Succ 25 MG TAB.ER.24H PO SCH (09:00)
[2019-02-24 12:14] VITALS: BP 169/83
--- NOTE | 2019-02-24 14:25 | Discharge Summary ---
- NOTES TO OUTPATIENT PROVIDER Notes to Outpatient Provider: Presented with the CVA,started on aspirin and plavix. Echo did not show any evidence of PFO. CTA of the head unremarkable. 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) Priority: Secondary Status: Acute (3) Hx of Becker's palsy Priority: Secondary Status: Acute (4) Diabetes Priority: Secondary Status: Acute Qualifiers: Diabetes mellitus type: type 2 Diabetes mellitus fci insulin use: without fci use Diabetes mellitus complication status: with kidney complications Diabetes mellitus complication detail: with chronic kidney disease Chronic kidney disease stage: stage 3 (moderate) Qualified Code(s): E11.22 - Type 2 diabetes mellitus with diabetic chronic kidney disease; N18.3 - Chronic kidney disease, stage 3 (moderate) (5) Hypertension Priority: Secondary Status: Acute Qualifiers: Hypertension type: essential hypertension Qualified Code(s): I10 - Essential (primary) hypertension (6) CKD (chronic kidney disease) stage 3, GFR 30-59 ml/min Priority: Secondary Status: Acute Hospital course: Mr. Fox is a 63 year old male with history of Becker's palsy, CK stage III, NIDDM Type II presents with left-sided weakness. He was not in tPA window. Brain MRI was consistent with acute infarction in the right mirella which measured 11.5 x 10 mm. The age of the head and neck were negative for any critical stenosis. Echocardiogram was negative for PFO. Neurology was consulted. Recommended to start the patient on Plavix and stop aspirin as the patient was already on aspirin and had the stroke. Patient was switched to Plavix. Currently on atorvastatin. PT/OT recommended physical therapy and the patient is being discharged to rehabilitation center. He is also being started on sertraline for stroke related depression. Hr is beign discharged in stable condition - Time Spent with Patient Total time spent providing and/or coordinating discharge services: 25 minutes - Discharge Medications Prescriptions: New Atorvastatin [Lipitor] 40 mg PO HS tablet Clopidogrel [Plavix] 75 mg PO DAILY tablet Sertraline [Zoloft] 50 mg PO DAILY tablet Continued Glimepiride [Amaryl] 2 mg PO QAM Losartan/Hydrochlorothiazide [Losartan-Hctz 100-25 mg Tab] 1 tab PO DAILY Metformin HCl [Glucophage] 500 mg PO DAILY Metoprolol Succinate [Toprol Xl] 25 mg PO DAILY Changed Tramadol HCl [Ultram] 50 mg PO Q8H PRN 7 Days #14 tab PRN Reason: Pain Discontinued Aspirin [Ecotrin] 325 mg PO 2-3XD Home Medications: Glimepiride [Amaryl] 2 mg PO QAM 02/20/19 [History] Losartan/Hydrochlorothiazide [Losartan-Hctz 100-25 mg Tab] 1 tab PO DAILY 02/20/19 [History] Metformin HCl [Glucophage] 500 mg PO DAILY 02/20/19 [History] Metoprolol Succinate [Toprol Xl] 25 mg PO DAILY 02/20/19 [History] Atorvastatin [Lipitor] 40 mg PO HS tablet 02/24/19 [Rx] Clopidogrel [Plavix] 75 mg PO DAILY tablet 02/24/19 [Rx] Sertraline [Zoloft] 50 mg PO DAILY tablet 02/24/19 [Rx] Tramadol HCl [Ultram] 50 mg PO Q8H PRN 7 Days #14 tab 02/24/19 [Rx] Allergies/Adverse Reactions: Allergy/AdvReac Type Severity Reaction Status Date / Time Amoxicillin Allergy Rash Verified 02/20/19 14:07 peanut Allergy Anaphylaxis Verified 02/20/19 14:07 Penicillins [PCN] Allergy Rash Verified 02/20/19 14:07 Date of admission: 02/21/19 12:31 Primary care physician: Jorge Dominguez Consults: 02/20/19 10:18 Consult to Neurology [CONS] Routine Consulting Provider: Neurology [facility] Reason for Consult: concern for CVA Call Completed: Yes Consult to Occupational Therapy [CONS] Routine Comment: Evaluate, develop and implement POC Reason for Consult: concern for CVA Does patient have active BEDREST order?: No Is patient medically & hemodynamically stable?: No Patient assessed for mobility or mobilized this visit?: No Consult to Physical Therapy [CONS] Routine Comment: Evaluate, develop and implement POC Reason for Consult: concern for CVA Does patient have active BEDREST order?: No Is patient medically & hemodynamically stable?: No Patient assessed for mobility or mobilized this visit?: No 02/21/19 08:15 Consult to Speech Therapy [CONS] Routine Comment: Evaluate, develop and implement POC Reason for Consult: stroke Call Completed: No 02/21/19 12:35 Consult to Case Management [CONS] Routine Comment: Discharge planning, prefers [facility] 02/22/19 09:55 Consult to Kinesiology Internship [CONS] Routine Reason for SW Consult: PT/OT RECOMMEND IP SWING BED - Constitutional Vitals: Temp Pulse Resp BP Pulse Ox 97.8 F 56 16 169/83 96 02/24/19 12:13 02/24/19 12:13 02/24/19 12:13 02/24/19 12:13 02/24/19 12:13 Exam: GEN: NAD, A&O x3 SKIN: [place] warm acyanotic not jaundice HEART: RRR, no murmurs LUNGS: CTA no wheeze or crackles, overall non labored ABDOMEN; Soft, non tender or distended, BS x 4 normactive EXT: No LE edema, Pedal pulses 1+, radial pulses 2+ PSYCH: Mood depressed and affect flat - Patient Status Disposition: Transfer SNF Condition: Fair - Discharge Instructions Follow Up With: Jorge Dominguez DO [Primary Care Provider] - - Diet and Activity Activity: as per physical therapy
--- NOTE | 2019-02-24 14:35 | Physician Discharge Referral ---
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) Priority: Secondary Status: Acute (3) Hx of Becker's palsy Priority: Secondary Status: Acute (4) Diabetes Priority: Secondary Status: Acute (5) Hypertension Priority: Secondary Status: Acute (6) CKD (chronic kidney disease) stage 3, GFR 30-59 ml/min Priority: Secondary Status: Acute - Transfer Medications Prescriptions: Tramadol HCl [Ultram] 50 mg PO Q8H PRN 7 Days #14 tab PRN Reason: Pain Prescription Printed Home Medications: Glimepiride [Amaryl] 2 mg PO QAM 02/20/19 [History] Losartan/Hydrochlorothiazide [Losartan-Hctz 100-25 mg Tab] 1 tab PO DAILY 02/20/19 [History] Metformin HCl [Glucophage] 500 mg PO DAILY 02/20/19 [History] Metoprolol Succinate [Toprol Xl] 25 mg PO DAILY 02/20/19 [History] Atorvastatin [Lipitor] 40 mg PO HS tablet 02/24/19 [Rx] Clopidogrel [Plavix] 75 mg PO DAILY tablet 02/24/19 [Rx] Sertraline [Zoloft] 50 mg PO DAILY tablet 02/24/19 [Rx] Tramadol HCl [Ultram] 50 mg PO Q8H PRN 7 Days #14 tab 02/24/19 [Rx] Allergies/Adverse Reactions: Allergy/AdvReac Type Severity Reaction Status Date / Time Amoxicillin Allergy Rash Verified 02/20/19 14:07 peanut Allergy Anaphylaxis Verified 02/20/19 14:07 Penicillins [PCN] Allergy Rash Verified 02/20/19 14:07 - Respiratory Orders Smoking Cessation: Smoking cessation has been advised. For more information, call the [place] Tobacco Quit Line at 0-528-MGJM-NOW. CERTIFICATION: I certify that the transfer of the above named patient to an Extended Care Facility is necessary for the continuing treatment of the diagnosis listed. The above information is true and accurate reflection of patient's current condition. Confidential - Redisclosure prohibited without a patient's written consent.
== END 2019-02-24 15:46 | DRG 65 ==
LOC: 3BNU 08:36 → EMEROOARM 08:36 → SUATTDRO 10:21 → 3BNU 10:47 → SUATTDRO 02-21 12:31
PROVIDERS: ADMIT Internal Medicine; ATTEND Internal Medicine